=== PATIENT | female | born 1950 | race Caucasian/White ===

== ENCOUNTER → 2023-09-18 11:22 | Outpatient (REF) | payer MEDICARE, OTHER, SELFPAY | LOC: RAD 11:22 | PROVIDERS: ATTENDING PHYSICIAN Emergency Medicine; FAMILY PHYSICIAN Family Medicine | DX: M79.605 Pain in left leg (principal); M79.89 Other specified soft tissue disorders | CPT/HCPCS: 93971 ==

== ENCOUNTER → 2023-11-06 18:53 | Outpatient (REF) | payer MEDICARE, OTHER, SELFPAY | LOC: WDC 18:53 | PROVIDERS: ATTENDING PHYSICIAN Obstetrics & Gynecology; FAMILY PHYSICIAN Family Medicine | DX: Z12.31 Encounter for screening mammogram for malignant neoplasm of breast (principal) | CPT/HCPCS: 77063; 77067 ==

== ENCOUNTER → 2024-01-16 10:59 | Outpatient (REF) | payer MEDICARE, OTHER, SELFPAY | LOC: RAD 10:59 | PROVIDERS: ATTENDING PHYSICIAN Internal Medicine Rheumatology; FAMILY PHYSICIAN Family Medicine | DX: M81.0 Age-related osteoporosis without current pathological fracture (principal); Z13.820 Encounter for screening for osteoporosis; M85.89 Other specified disorders of bone density and structure, multiple sites | CPT/HCPCS: 77080; 77081 ==

== ENCOUNTER 2024-09-23 03:08 | Observation (INO) | payer MEDICARE, OTHER, SELFPAY ==
[2024-09-22 22:20] VITALS: BP 158/137; BP 179/93; BMI 38.6
[2024-09-22 22:22] VITALS: BP 179/93
[2024-09-22 22:49] LABS: Hematocrit 37.5 % (37.0-47.0); Hemoglobin 12.5 g/dL (12.0-16.0); Mean Corp Hgb Conc. 33.3 g/dL (33.0-37.0); Mean Corpuscular Volume 84.7 fL (81.0-99.0); Nucleated Red Blood Cells % 0 %; Platelet Count 325 10^3/uL (130-400); Red Cell Dist. Width 13.9 % (11.5-14.5)
--- NOTE | 2024-09-22 22:58 | ED.GENMED ---
History of Present Illness
General
Chief Complaint: Post Operative Problem(s)
Source: patient
Exam Limitations: none
Time Seen by Provider: 09/22/24 22:56
Nursing documentation reviewed up to this point in time: agreed with
History of Present Illness
History of Present Illness:
Note:
CHIEF COMPLAINT(S)
Increased pain and swelling of the knee following recent knee replacement surgery.
HISTORY OF PRESENT ILLNESS
The patient is a 73-year-old female with pmh of osteoarthirits who underwent a knee replacement surgery approximately one week ago performed by Dr. Burgos at [facility]. Post-operatively, the patient experienced increasing pain and swelling
in the affected knee, which was initially managed with at-home physical therapy exercised over three consecutive days. However, despite early improvements, the patient reported a significant worsening of symptoms on the evening of presentation. She
noted that typically effective oxycodone therapy was not helpful in alleviating the pain.
The patient denies any fever or vomiting post-surgery. Pain management has included oxycodone, with dosing at 1:00 PM and again at 8:20 PM, followed by a second dose at 9:20 PM due to insufficient relief. It was confirmed that she was taking 5
milligrams of oxycodone per dose. Despite this, she continued to experience considerable pain, describing difficulties such as an inability to stand with normal weight-bearing and changes in her walking pattern due to discomfort and swelling. The
patient did not report taking any blood thinners such as Eliquis or Warfarin, nor did she recall the specific antibiotic prescribed post-surgery, though it was initially suggested that it began with the letter 'D.'
PHYSICAL EXAM
Nursing notes and vital signs have been thoroughly reviewed.
General: Patient is well appearing and in no acute distress; non-toxic
Skin: Warm and dry, no rashes or lesions
Head: Normocephalic, atraumatic
Eyes: Sclera non-icteric. EOMs intact.
Cardiac: Tachycardia noted, regular rhythm, no murmurs
Peripheral Vascular: Left sided lower extremity swelling with overlying ecchymosis, 2+ DP and PT pulses b/l
Pulm: Normal respiratory effort, no wheezes, rales, or rhonchi
Musculoskeletal: Tenderness to palpation in the left lower extremity, pain with flexion and extension of the left knee, tenderness to palpation of the posterior knee
Neuro: CN II-XII intact, no focal neurologic deficits.
Psychiatric: Appropriate mood and affect.
PROBLEM LIST
Acute Problems:
- Postoperative knee pain and swelling
CHART REVIEW
-Reviewed external medical summary report from September 03, 2024, patient has continued to experience progressively more standing knee pain despite exhaustive conservative management and decision was made to go under knee replacement surgery,
postoperative prescriptions were provided and she will be started on aspirin following surgery 1 dose daily for DVT prophylaxis
- No operative note or discharge summary for review in [facility]
PLAN
- Obtain an ultrasound of the knee to assess for possible blood clots.
- Initiate pain management, potentially consider small doses of morphine if necessary.
- Consult with orthopedic surgery follow up
DIFFERENTIAL DIAGNOSIS
The Differential Diagnosis includes, in no particular order and is not limited to:
1. Post-surgical pain
2. Hematoma formation
3. Deep vein thrombosis
4. Joint infection
5. Soft tissue inflammation
6. Prosthesis-related osteolysis
7. Complex Regional Pain Syndrome
8. Osteomyelitis
9. Nerve entrapment or injury
10. Surgical site infection
Disposition:
SUMMARY OF ENCOUNTER
The patient is a 74-year-old female with a history of hyperlipidemia, osteoporosis, and right-sided breast cancer. She presented to the emergency department with increased pain and swelling in her right knee, six days following a total knee
replacement. Although she experienced no fevers, chest pain, or shortness of breath, she reported significant difficulty ambulating due to the knee pain. The clinical examination showed knee swelling, ecchymosis, limited range of motion, and the
absence of erythema or discharge from surgical [place]. She was noted to be acutely hypertensive and tachycardic, although afebrile. Venous ultrasound of the left lower extremity was normal. The patients blood work and C-reactive protein were
normal, reducing the suspicion for septic arthritis. Her pain was poorly managed with oxycodone at home. In the emergency room, she received morphine and hydromorphone, easing her pain to 5 out of 10. Pain and swelling are suspected to be secondary
to post-surgical status.
DISPOSITION
Admit for pain control and orthopedic consultation.
ASSESSMENT
Postoperative right knee pain and swelling, likely related to surgical status.
EMERGENCY TREATMENTS ADMINISTERED
Morphine and hydromorphone (Dilaudid).
MANAGEMENT OF THE PATIENTS CARE WAS DISCUSSED WITH
Case discussed with emergency department attending physician.
INDEPENDENT REVIEW OF LABS AND INTERPRETATION OF TESTS
Labs reviewed, mild leukocytosis 12.8, elevated fasting glucose, CRP normal
X-ray unremarkable, ultrasound negative
MEDICAL DECISION MAKING
-Chronic conditions affecting care: Hyperlipidemia, osteoporosis, and prior breast cancer. Differential diagnosis includes post-surgical pain, hematoma formation, deep vein thrombosis, joint infection, soft tissue inflammation, prosthesis-related
osteolysis, complex regional pain syndrome, osteomyelitis, nerve entrapment or injury, surgical site infection.
-Data:
Category 1
The following tests were independently interpreted: venous ultrasound of the left lower extremity, blood work, and C-reactive protein.
Category 3
Discussion of management with an attending physician for admission and orthopedic consultation.
-Risk:
Escalation of care, including admission, was necessary considering the complexity and risk of the patients presenting complaint.
DIAGNOSIS
Postoperative pain and swelling of the right knee following total knee arthroplasty (TKA) - ICD-10: T84.84XA
Past History
Past History
ED Past Medical History: Hypercholesterolemia
ED Past Surgical History: None, Gynecological (Hysterectomy), Orthopedic (Left knee meniscus), Urological (Bladder surgery) and Other (Bowel cyst removal)
Social History
Tobacco: Non-smoker
Alcohol: None
Drug: None
Personal:
Living: with family
Phy Exam
Physical Exam
Physical Exam:
see hpi
Course
Orders/Labs/Results
Orders:
Orders
09/22/24 22:29
Electrocardiogram (*1) Urgent
Reason for Study: Tachycardia
EKG- Treatment ONCE
09/22/24 22:34
C-Reactive Protein Urgent
Comment: ADD ON
CMP [Comprehensive Metabolic Panel] Urgent
Complete Blood Count/With Diff Urgent
Erythrocyte Sed Rate Urgent
Comment: ADD ON
09/22/24 23:16
0.9% Sodium Chloride 500 ml [Nss] 500 ml IV BOLUS
Morphine Sulfate 4 mg IV NOW STA
US Periph Venous LOWER Ext LT Urgent
Comment:
Reason For Exam: left lower extremity swelling and pain
09/22/24 23:18
Acetaminophen [Tylenol] 1,000 mg PO NOW STA
09/22/24 23:26
Add On- LAB Urgent
Tests Added?: ESR, CRP
09/22/24 23:27
CR Knee - Left 4 Or More View* Urgent
Comment:
Reason For Exam: left knee pain, sweling
09/23/24 00:37
HYDROmorphone [Dilaudid] 0.5 mg IV NOW STA
Abnormal Lab Results
09/22/24
22:34
WBC 12.8 H 10^3/uL
(4.8-10.8)
Abs Immat Gran (auto) 0.2 H 10^3/uL
(0-0.05)
Absolute Neuts (auto) 8.2 H 10^3/uL
(1.4-6.5)
Absolute Monos (auto) 1.0 H 10^3/uL
(0.1-0.6)
Immature Gran % 1.5 H %
(0-0.5)
Sodium 134 L mmol/L
(135-145)
Glucose 189 H mg/dl
(70-99)
Total Protein 6.0 L g/dl
(6.3-8.2)
09/22/24 22:34
09/22/24 22:34
Vital Signs
Initial and Last Documented VS:
Initial Vital Signs
Temp Pulse Resp BP Pulse Ox
98.1 F 102 22 179/93 98
09/22/24 22:20 09/22/24 22:20 09/22/24 22:20 09/22/24 22:20 09/22/24 22:20
Last Documented Vital Signs
Temp Pulse Resp BP Pulse Ox
98.1 F 96 17 158/75 93
09/22/24 22:20 09/23/24 02:15 09/23/24 02:15 09/23/24 02:00 09/23/24 02:15
*Pulse Oximetry
SaO2: 98
Oxygen Mode of Delivery: Room air
Patient hypoxic: no
*Critical Care Note
Total Time (30-74mins, 75-104mins- exclusive of procedures): Not Applicable
ED Attending Note
-
Portions of this chart may have been created with voice recognition software.� Occasional wrong word or��sound alike� substitutions may have occurred due to the inherent limitations of voice recognition software.
Discharge Plan
Departure
Patient Disposition: Admit
Date of Disposition: 09/23/24
Time of Disposition: 02:39
Admit to: Med/Surg
Presentation/result/management discussed w/ accepting MD/DO: Hospitalist
Patient with high blood pressure during this ER visit?: Yes
Condition: Fair
Discharge Problem:
Postoperative pain of left knee
Prescriptions:
No Action
denosumab [Prolia] 60 MG/ML syringe
60 mg SC [id number]
cranberry conc-ascorbic acid 1 EACH capsule
2 ea PO DAILY
Patient Comments:
4200 mg
nitrofurantoin macrocrystal 50 MG capsule
50 mg PO PRN PRN (Reason: post coitus)
atorvastatin 10 MG tablet
10 mg PO QPM
dpbkijag-hnifnulmt-EP [Cortisporin] 7.5 GRAM cream
1 applic topical PRN PRN (Reason: eczema)
cholecalciferol (vitamin D3) 2,000 UNITS tablet
2,000 units PO DAILY
psyllium husk [Metamucil Fiber (aspartame)] 1 PACKET powder in packet
1 packet PO QPM
estradiol [Yuvafem] 10 MCG tablet
10 mcg VAG SUWE
Citracal W/D3 Petities 1 TAB Tab
2 tab PO BID
sennosides [senna] 1 TABLET tablet
2 tab PO BID 0RF
acetaminophen 325 MG tablet
650 mg PO QID 0RF
hydrocodone-acetaminophen 1 TABLET tablet
1 tab PO Q4HPRN PRN (Reason: moderate-severe pain) Qty: 35 0RF
Rx Instructions:
1 tab moderate pain or 2 if pain severe
dx tka
ongoing therapy
prochlorperazine maleate 5 MG tablet
5 mg PO Q6HPRN PRN (Reason: n/v) Qty: 15 1RF
tramadol 50 MG tablet
25 mg PO QID Qty: 20 0RF
Rx Instructions:
1/2 tab (25mg)qid x 1 week, then q6h prn breakthru or mild pain
dx TKA
ongoing therapy
magnesium hydroxide 30 ML suspension
30 ml PO DAILYPRN PRN (Reason: constipation) 0RF
aspirin 325 MG tablet,delayed release (DR/EC)
325 mg PO DAILY 0RF
docusate sodium 100 MG capsule
100 mg PO BID 0RF
mupirocin 1 APPLIC ointment
1 applic intranasal BID 0RF
naproxen sodium [Aleve] 220 MG tablet
220 mg PO BID Qty: 0 0RF
Rx Instructions:
TAKE WITH FOOD
DO NOT TAKE WITHIN 2 HOURS OF ASA
omeprazole magnesium [Prilosec OTC] 20 MG tablet,delayed release (DR/EC)
20 mg PO HS Qty: 0 0RF
Rx Instructions:
TAKE NIGHTLY WHILE ON ASA AND NAPROXEN
hydrocodone-acetaminophen 1 EACH tablet
1 ea PO Q4HPRN PRN (Reason: pain > 4/10) Qty: 30 0RF
Referrals:
UNKNOWN - PT DOES,NOT KNOW [Family Provider]
Interventions
Interventions:
*Risk Screen - Suicide Last Done: 09/22/24 22:20
*General Assessment Last Done: 09/22/24 22:20
*Neglect/Abuse Screening Last Done: 09/22/24 22:20
*ED- Fall Risk Assessment Last Done: 09/22/24 22:20
*ED COVID-19 Vaccine History Last Done: 09/22/24 22:20
ED-Skin Assessment Last Done: 09/22/24 22:30
Discharge Date and Time
Print Language: CZECH
[2024-09-22 23:12] LABS: ALT (SGPT) 24 U/L (0-35); AST (SGOT) 18 U/L (14-36); Albumin 3.7 g/dl (3.5-5.0); Alkaline Phosphatase 49 U/L (38-126); Blood Urea Nitrogen 15 mg/dl (7-17); Calcium 8.9 mg/dl (8.4-10.2); Carbon Dioxide 26 mmol/L (22-30); Chloride 102 mmol/L (98-107); Estimated Creatinine Clearance 89 ml/min; Glucose 189 mg/dl (70-99); Potassium 4.7 mmol/L (3.5-5.1); Sodium 134 mmol/L (135-145); Total Protein 6.0 g/dl (6.3-8.2); eGFR > 60.00
[2024-09-22] MEDS: TYLENOL 1000 MG PO (23:44)
[2024-09-22] MEDS: NSS 500 IV (23:46)
[2024-09-22] MEDS: MORPHINE SULFATE 4 MG IV (23:48)
[2024-09-23] VITALS (11 sets, daily range): BP systolic 149–186; BP diastolic 75–93; PULSE 105; O2SAT 96; BMI 37.7
[2024-09-23 00:26] LABS: C-Reactive Protein < 5.00 mg/L (0.0-10.00)
[2024-09-23] MEDS: DILAUDID 0.5 MG IV ×2 (00:43→05:09)
--- NOTE | 2024-09-23 02:32 | DOWNTIME ---
There was a [employer] Downtime on 09/23/2024 from 0100 to 09/23/2024 at 0220. Downtime documentation of patient's care, including medication administrations, has been reconciled in the electronic record per guidelines. Refer to the
patient's paper chart under the miscellaneous tab to see printed paper medication records and downtime forms.
--- NOTE | 2024-09-23 02:48 | HPS.HSE ---
Family Physician
-
Family Physician: NOT KNOW UNKNOWN - PT DOES
Chief Complaint
-
Knee pain
History of Present Illness
This is a 73-year-old female with past medical history significant for GERD, hyperlipidemia, osteoporosis who presents to the emergency department with knee pain. Day # status post left total knee arthroplasty.
Patient reported that 60 days ago she underwent the knee surgery for end-stage left knee osteoarthritis. 6 days following surgery she says that the pain has been worse. She reported that she had same-day surgery and was discharged home to home.
She had a follow-up PT and OT evaluation as well as CBC not the following day. They did physical therapy with her and she was actually feeling better. The continued physical therapy for the next 4 days. On Sunday the patient went to outpatient PT
and had initial evaluation with a stride where she had a pain in the leg and that is when she started noticing the pain. By time she got home she noticed that she has had increased swelling and the legs were very stiff. When she tried to bend the
knee she developed excruciating pain. Due to the swelling and pain family was concerned about a possible blood clot and she was referred to the emergency department. Patient denies any falls. She denies any oral trauma. Patient denies any
weeping or draining from the incision site. She denies having any fevers or chills. She denies any redness.
In the emergency department she was afebrile, blood pressure was 158/75 with a pulse of 96 satting 90% on room air.
ECG was unremarkable
She had a white count of 12.8 at rest of the CBC was unremarkable. Electrolytes were normal. BUN/creatinine were normal. Glucose was 189.
ESR ESR was negative, CRP was negative. Knee x-ray shows appropriate post operative findings. Ultrasound was negative for DVT.
Medical History
Past Medical History
Past Medical History: Reports GERD and Hypercholesterolemia
Past Surgical History: Reports Orthopedic (Status post left total knee arthroplasty)
Social History
Tobacco: Non-smoker
Alcohol: None
Drug: None
Living: With Family
Family History
Family History: Not pertinent
Allergies / Home Medications
Allergies reflects when Allergies were last updated in [employer].
Home Medications with original date entered in [employer]
Allergy/Medication List:
Allergies
Allergy/AdvReac Type Severity Reaction Status Date / Time
alendronate sodium Allergy JOINT PAIN Verified 09/22/24 22:19
risedronate sodium (From Allergy patient Verified 09/22/24 22:19
Actonel) felt like
'throat
closing'
sulfamethoxazole (From Allergy Hives Verified 09/22/24 22:19
Bactrim)
trimethoprim (From Bactrim) Allergy Hives Verified 09/22/24 22:19
dust Allergy tightness Uncoded 09/22/24 22:19
in chest
feather pillows Allergy Hives Uncoded 09/22/24 22:19
mildew Allergy tightness Uncoded 09/22/24 22:19
in chest
mold Allergy tightness Uncoded 09/22/24 22:19
in chest
wool Allergy Rash Uncoded 09/22/24 22:19
Home Medications
Citracal W/D3 Petities 2 tab PO BID 06/10/18
atorvastatin 10 mg tablet 10 mg PO QPM 06/10/18
cholecalciferol (vitamin D3) 50 mcg (2,000 unit) tablet 2,000 units PO DAILY 06/10/18
cranberry concentrate-ascorbic acid 4,200 mg-20 mg capsule 2 ea PO DAILY 06/10/18
denosumab 60 mg/mL subcutaneous syringe (Prolia) 60 mg SC [id number] 06/10/18
estradiol 10 mcg vaginal tablet (Yuvafem) 10 mcg VAG SUWE 06/10/18
cuyslyib-jqtvkngpt-euauvjcxg 3.5 mg/g-10,000 unit/g-0.5 %topical cream (Cortisporin) 1 applic topical PRN PRN eczema 06/10/18
nitrofurantoin macrocrystal 50 mg capsule 50 mg PO PRN PRN post coitus 06/10/18
psyllium husk 3.4 gram oral powder packet (Metamucil Fiber (aspartame)) 1 packet PO QPM 06/10/18
acetaminophen 325 mg tablet 650 mg (2 x 325 mg) PO QID 07/05/18
aspirin 325 mg tablet,delayed release 325 mg PO DAILY 07/05/18
docusate sodium 100 mg capsule 100 mg PO BID 07/05/18
hydrocodone 5 mg-acetaminophen 325 mg tablet 1 tab PO Q4HPRN PRN moderate-severe pain ##35 07/05/18
magnesium hydroxide 400 mg/5 mL oral suspension 30 ml PO DAILYPRN PRN constipation 07/05/18
mupirocin 2 % topical ointment 1 applic intranasal BID 07/05/18
naproxen sodium 220 mg tablet (Aleve) 220 mg PO BID ##0 07/05/18
omeprazole magnesium 20 mg tablet,delayed release (Prilosec OTC) 20 mg PO HS ##0 07/05/18
prochlorperazine maleate 5 mg tablet 5 mg PO Q6HPRN PRN n/v ##15 07/05/18
sennosides 8.6 mg tablet (senna) 2 tab PO BID 07/05/18
tramadol 50 mg tablet 25 mg (1/2 x 50 mg) PO QID ##20 07/05/18
hydrocodone 5 mg-acetaminophen 325 mg tablet 1 ea PO Q4HPRN PRN pain > 4/10 #30 tabs 02/04/19
Review of Systems
-
Constitutional: Reports No Symptoms
EENT: Reports No Symptoms
Respiratory: Reports No Symptoms
Cardiac: Reports No Symptoms
Abdomen/GI: Reports No Symptoms
: Reports No Symptoms
Musculoskeletal: Reports Joint Pain and Joint Swelling
Skin: Reports No Symptoms
Neurological: Reports No Symptoms
Endocrine: Reports No Symptoms
Hematologic/Lymphatic: Reports No Symptoms
Psych: Reports No Symptoms
Physical Exam
Vital Signs
Vital Signs
Temp Pulse Resp BP Pulse Ox
98.1 F 96 17 158/75 93
09/22/24 22:20 09/23/24 02:15 09/23/24 02:15 09/23/24 02:00 09/23/24 02:15
Physical Exam
General: Well Developed, Well Nourished and No Apparent Distress
HEENT: NormoCephalic, Moist mucous membranes and Atraumatic
Respiratory: Clear
Cardiac: S1/S2 and Regular Rhythm; No Murmur or Rub
GI: Soft, Non Tender, Non Distended and Normal Bowel Sounds; No Organomegaly
Rectal: Deferred by Provider
Musculoskeletal: No Clubbing, No Cyanosis, Edema, Left Lower Extremity and Other (Left knee ecchymoses and swelling, reduced range of motion, no erythema, no drainage, left knee knee does feel slightly warm compared to the contralateral knee.)
Skin: No Rash
Neuro: AO x 3 and Nonfocal/grossly intact
Psych: Calm
Laboratory Results
-
09/22/24 22:34
09/22/24 22:34
Laboratory Results
Total Bilirubin 0.5 mg/dl (0.2-1.3) 09/22/24 22:34
AST 18 U/L (14-36) 09/22/24 22:34
ALT 24 U/L (0-35) 09/22/24 22:34
Alkaline Phosphatase 49 U/L (38-126) 09/22/24 22:34
Data Reviewed
-
Ultrasound: Image Personally Visualized and interpreted
Medical Tests (Nuc Med, Echo, EKG etc): Image Personally Visualized and interpreted
Lab Data: Labs Reviewed by me
Old Records: Reviewed
Impression/Plan
-
IMPRESSION:
73-year-old female with knee pain postop day #3 status post left total knee arthroplasty. The knee itself has some edema but no erythema warmth or drainage. There is some reduced range of motion. There is significant edema in the left leg which
she also appears postsurgical. Ultrasound was negative for DVT. This exam is consistent with a postsurgical knee. No obvious signs of cellulitis. Inflammatory markers such as ESR and CRP were normal. There is no fever. White count was 12.8.
Low concern for septic arthritis.
PLAN:
Left knee pain with ambulatory dysfunction
- Admit to MedSurg observation
- Orthopedic consult
- Continue with pain control with morphine and toradol
- continue post op dvt ppx with asa 325 daily for now
- in the absence of signs of infection, held of abx pending ortho examination.
- PT eval
- case management
Code Status - Full code
--- NOTE | 2024-09-23 08:05 | CON.ORTHO ---
Addendum entered and electronically signed by Jorden Burgos MD 09/23/24 18:00:
Patient seen and examined. Sitting in a chair in hospital room with family at her bedside. Admitted for intractable pain last night following TKR by myself a few days ago. No signs of infection. US negative. Pain manageable. Recommend
discharge tomorrow morning after PT. Resume outpatient PT on . Continue home postop meds to include ASA for DVT prophylaxis. Follow up in office at 2 weeks postop for staple removal.
Original Note:
Consultation
-
Date/Time Consultation Requested: 09/23/24
Date/Time Consultation Performed: 09/23/24 @7:45am
Requesting Provider: ER Provider
Performing Provider: Lizzie Stephens PA-C, Fletcher Burgos MD
Reason for Consultation: left knee pain
Consultation - Orthopedics
History
HPI: 73yo female who presented to [place] [facility] for left knee pain. She underwent left TKA on 09/17/[address] Burgos. She reports that she has been doing well however last night she had increased swelling and pain to the left knee. She was taking
extra strength tylenol and oxycodone without relief. She was having some pain in her calf as well and therefore presented to the ER for evaluation. She has been working with PT 2-3 times per week and performing home exercises three times per day.
She also reports that over the past few days she has started cutting back on her oxycodone. She had an ultrasound performed which was negative for DVT and her labwork was unremarkable. She denies fever or chills. She has been compliant with her
aspirin for DVT prophylaxis
PAST MEDICAL HISTORY: GERD and Hypercholesterolemia
PAST SURGICAL HISTORY: s/p left TKA, right TKA
SOCIAL HISTORY: denies tobacco, alcohol. lives at home with family
FAMILY HISTORY: non contributory
REVIEW OF SYSTEMS: 12 point review of systems obtained and negative except those mentioned in the HPI
Allergies / Home Medications
Allergy/AdvReac Type Severity Reaction Status Date / Time
alendronate sodium Allergy JOINT PAIN Verified 09/22/24 22:19
risedronate sodium (From Allergy patient Verified 09/22/24 22:19
Actonel) felt like
'throat
closing'
sulfamethoxazole (From Allergy Hives Verified 09/22/24 22:19
Bactrim)
trimethoprim (From Bactrim) Allergy Hives Verified 09/22/24 22:19
dust Allergy tightness Uncoded 09/22/24 22:19
in chest
feather pillows Allergy Hives Uncoded 09/22/24 22:19
mildew Allergy tightness Uncoded 09/22/24 22:19
in chest
mold Allergy tightness Uncoded 09/22/24 22:19
in chest
wool Allergy Rash Uncoded 09/22/24 22:19
�Medication �Instructions �Recorded
Citracal W/D3 Petities 2 tab PO BID 06/10/18
atorvastatin 10 mg tablet 10 mg PO QPM 06/10/18
cholecalciferol (vitamin D3) 50 2,000 units PO DAILY 06/10/18
mcg (2,000 unit) tablet
cranberry concentrate-ascorbic 2 ea PO DAILY 06/10/18
acid 4,200 mg-20 mg capsule
denosumab 60 mg/mL subcutaneous 60 mg SC [id number] 06/10/18
syringe (Prolia)
estradiol 10 mcg vaginal tablet 10 mcg VAG SUWE 06/10/18
(Yuvafem)
psyllium husk 3.4 gram oral powder 1 packet PO QPM 06/10/18
packet (Metamucil Fiber
(aspartame))
acetaminophen 325 mg tablet 650 mg (2 x 325 mg) PO QID 07/05/18
docusate sodium 100 mg capsule 100 mg PO BID 07/05/18
magnesium hydroxide 400 mg/5 mL 30 ml PO DAILYPRN PRN constipation 07/05/18
oral suspension
omeprazole magnesium 20 mg 20 mg PO HS ##0 07/05/18
tablet,delayed release (Prilosec
OTC)
Vital Signs / Lab Results
Temp Pulse Resp BP Pulse Ox
98.4 F 106 18 172/88 97
09/23/24 07:00 09/23/24 07:00 09/23/24 07:00 09/23/24 07:00 09/23/24 07:00
09/22/24 22:34
09/22/24 22:34
Labs:
ESR 10
CRP <5
RADIOGRAPHIC FINDINGS:
Xrays left knee show well positioned left TKA without evidence of hardware complication. no obvious fracture. overlying [place]
Ultrasound negative for DVT
PHYSICAL EXAM:
General: no acute distress
HEENT: NCAT, sclera anicteric, normal hearing
Heart: No JVD
Lungs: Normal work of breathing on room air
MSK: Focused exam of left knee reveals Aquacel in place with minimal strikethrough to center. expected edema and ecchymosis. mild general tenderness to palpation of the knee. ROM 3-80. calf soft and nontender. NVI distally
Assessment / Plan
ASSESSMENT: 73yo female with left knee pain s/p left TKA one week ago
PLAN: Ms. Ying presents to the ER for uncontrolled pain one week postop from left TKA under the direction of Dr. Burgos. Her lab work is unremarkable and her xray looks good. I am not concerned for infection at this time. Her pain is improved
currently. Her left knee does have expected postop swelling and bruising. Thankfully, her ultrasound was negative for DVT. Reviewed with her to continue with aggressive icing and elevation. She may also continue with pain medications as needed. She
states that she will need a refill of her oxycodone which I will send to her pharmacy. She may continue working with PT. She is to take aspirin 325mg daily for DVT prophylaxis until one month postop. She does have an outpatient appointment scheduled
for next week. Orthopedics will sign off at this time. Please reach out with any questions or concerns.
[2024-09-23] MEDS: COLACE 100 MG PO ×2 (08:41→20:21)
[2024-09-23] MEDS: ASPIRIN ENTERIC COATED 325 MG PO (08:41)
[2024-09-23] MEDS: APRESOLINE 10 MG IV ×2 (09:10→16:02)
--- NOTE | 2024-09-23 11:01 | CM ---
Addendum entered by Raya Bradford 09/23/24 12:58:
Pt is eligible for [employer] waiver
Original Note:
CM met with pt bedside
Pt resides with her spouse in a 2SH with 3STE thru back and 6STE thru front
Pt had L. TKA on 09/17
Has since closed to [facility] last week and current with outpt therapy at [facility] in [place]
Pt has been sleeping in recliner on 1st floor since surgery but typically sleeps on 2nd floor, full flight
Pt is typically indep at baseline, has been utilizing a WW since surgery
Has a WW, SPC, RTSx2 and shower chair at home
PCP- Saritha Leblanc
Rx- [facility], [place]
Pt is OBS- [facility] verbally reviewed, copy provided
PT eval pending
Discharge Disposition- home with [facility] outpt vs VN vs watch for higher needs
[2024-09-23] MEDS: ROXICODONE 5 MG PO (16:11)
--- NOTE | 2024-09-23 17:01 | PTCARENOTE ---
Pt arrived to [facility] from the ED in a wheelchair. Pt walked from wheelchair to chair with a RW. Left knee with +2 edema and ecchymosis. Left knee dressing with small old drainage. Admission questions answered. Bed locked and in lowest position. Care
ongoing.
[2024-09-23] MEDS: LIPITOR 10 MG PO (17:41)
[2024-09-23] MEDS: TOPROL XL 25 MG PO (18:14)
[2024-09-23] MEDS: PROTONIX 40 MG PO (20:21)
[2024-09-24] MEDS: ROXICODONE 5 MG PO (02:54)
[2024-09-24 07:37] VITALS: BP 143/81
[2024-09-24] MEDS: ASPIRIN ENTERIC COATED 325 MG PO (07:52)
[2024-09-24] MEDS: TOPROL XL 25 MG PO (07:52)
[2024-09-24] MEDS: COLACE 100 MG PO (07:52)
[2024-09-24 09:02] LABS: Hematocrit 37.1 % (37.0-47.0); Hemoglobin 12.0 g/dL (12.0-16.0); Mean Corp Hgb Conc. 32.3 g/dL (33.0-37.0); Mean Corpuscular Volume 86.3 fL (81.0-99.0); Platelet Count 321 10^3/uL (130-400); Red Cell Dist. Width 14.1 % (11.5-14.5)
--- NOTE | 2024-09-24 09:09 | W.PN.HOSP.TC ---
Addendum entered and electronically signed by Jose Foote MD 09/24/24 11:20:
CT chest PE showing RUL PE, mod clot burden, no heart strain based on CT standard
will discuss with ortho for clearance to be started on blood thinners.
Original Note:
Today's Communication/Plan
-
Reevaluation by physical therapy
Check renal function
CT chest PE
Discharge later today if CT negative
Assessment / Plan
Assessment / Plan
1. Left knee pain
Ambulatory dysfunction
Status post left TKA on 09/17
- Patient evaluated by orthopedic surgery and no acute pathology found
- Lower extremity venous Doppler negative for blood clot
- Patient to be reevaluated by physical therapy
- Pain control and therapy recommended moving forward
2. Sinus tachycardia
Elevated blood pressure
-No formal diagnosis of hypertension
-Patient started on Toprol-XL for simultaneous control of blood pressure and heart rate
-Although pain can explain patient is relatively controlled with current pain medication regimen, we will need to rule out VTE, ordering CT chest PE. Check renal function for appropriateness for contrast study.
3. Gastroesophageal reflux disease
-Maintain on omeprazole
4. Hyperlipidemia
-Continue on atorvastatin
DVT PPX - SCD
Full code
Anticipated Discharge: Today
Subjective/Interval History
-
Date of Service: September 24, 2024
Resting comfortably in bed
No chest pain/palpitation/dizziness overnight
Objective Data
-
Labs:
Laboratory Results
09/24/24
08:42
WBC 13.5 H
Hgb 12.0
Hct 37.1
Plt Count 321
Sodium Pending
Potassium Pending
Chloride Pending
Carbon Dioxide Pending
BUN Pending
Creatinine Pending
Glucose Pending
Calcium Pending
Vital Signs:
Vital Signs
Temp Pulse Resp BP Pulse Ox
98.7 F 109 16 143/81 96
09/24/24 07:37 09/24/24 07:37 09/24/24 07:37 09/24/24 07:37 09/24/24 07:37
I&O
09/23/24 09/24/24 09/25/24
06:59 06:59 06:59
Intake Total 1320 / 1320
Output Total 275 / 275
Balance 1045 / 1045
Review of Systems
-
Respiratory: Reports No Symptoms
Cardiac: Denies Chest Pain or Palpitations
Abdomen/GI: Reports No Symptoms
Physical Exam
-
General: Comfortable
HEENT: Negative Oxygen
Cardiac: Regular Rhythm, S1/S2 and Tachycardic; Negative Murmur or Rub
GI: Soft and Nontender
Musculoskeletal: Edema, Left Lower Extrem (Midline dressing, ecchymosis)
Neuro: Awake, Alert, Oriented, No Motor Deficits and Nonfocal/Grossly Intact
Psych: Calm
[2024-09-24 09:34] LABS: Blood Urea Nitrogen 11 mg/dl (7-17); Calcium 9.5 mg/dl (8.4-10.2); Carbon Dioxide 27 mmol/L (22-30); Chloride 101 mmol/L (98-107); Estimated Creatinine Clearance 88 ml/min; Glucose 148 mg/dl (70-99); Potassium 4.4 mmol/L (3.5-5.1); Sodium 135 mmol/L (135-145); eGFR > 60.00
[2024-09-24] MEDS: ELIQUIS 10 MG PO (12:15)
--- NOTE | 2024-09-24 13:16 | CM ---
Reviewed the chart notes and spoke with the patient at the bedside. Coupon for 30d free Eliquis provided to the patient. Patient's spouse at bedside for transportation to home today. Patient will be doing outpatient PT at [facility]. CM
continues to be available to patient/family and is monitoring medical plan for needs at discharge.
Plan: Discharge to home with outpatient therapy with [facility].
[2024-09-24 13:30] VITALS: BP 152/88
--- NOTE | 2024-09-25 15:49 | W.DCSUMMARY ---
Discharge Summary
Discharge Data
Date of Admission: 09/23/24
Date of Discharge: 09/24/24
-
Pending Results: No
Hospital Course
Discharging Physician : Dr Jose Foote
Disposition : To home
Primary care physician : Unknown
Principal Discharge diagnosis :
Left knee pain post recent left total knee replacement
Right upper lobe pulmonary embolism
Ambulatory dysfunction
Chronic Discharge diagnosis :
Obesity
Osteoarthritis
Hyperlipidemia
Essential hypertension
Gastroesophageal reflux disease
Hospital Course :
Patient is a 73-year-old female with no mentioned past medical history came to ER with having new onset of left knee pain and ambulatory dysfunction. Patient had underwent an left knee replacement on September 17. Postdischarge patient noted to having
some excessive pain and swelling and came to ER for further evaluation. A lower extremity venous Doppler done in ER was negative for acute issues. Orthopedic surgery evaluated and no issues were found with replacement knee. Orthopedic surgery
cleared patient to continue on outpatient therapy with pain control. Patient was also noted to be having sinus tachycardia, a follow-up CT chest PE was done which showed right upper lobe PE. Patient did not have any complicating factor of
hypoxia/heart strain. Patient was started on Eliquis therapy and was discharged home to follow-up with primary hematology/oncologist
Important imaging findings :
None
Procedure findings :
None
Discharge Plan
-
Patient Disposition: Home (Routine Discharge)
Discharge Diagnosis/Procedures: RUL PE, left knee replacement 7, Pain
Condition: Fair
Diet: Regular
Activity: As tolerated
Driving Restrictions: No driving until cleared by physical therapy
Bathing Restrictions: OK to Shower
Other Services: PT
Activity Restrictions/Additional Instructions:
Please seek medical attention for major bleeding -blood in stool/vomiting blood/hematoma formation/nose bleeding.
Referrals:
Natali Wade MD [Active, Oncology] - in one to two months
UNKNOWN - PT DOES,NOT KNOW [Family Provider]
Prescriptions:
New
metoprolol succinate 25 mg Tablet Extended Release 24 Hr
25 mg PO BID Qty: 60 2RF
Eliquis 5 mg tablet
5 mg PO BID Qty: 74 0RF
Rx Instructions:
Take 2 tablets twice daily for 7 days then take 1 tablet twice daily for maintenance
First month supply
Eliquis 5 mg tablet
5 mg PO BID Qty: 60 1RF
Rx Instructions:
Second months supply
Continued
Prolia 60 MG/ML syringe
60 mg SC [id number]
atorvastatin 10 MG tablet
10 mg PO QPM
Metamucil Fiber (aspartame) 1 PACKET powder in packet
1 packet PO QPM
Caltrate-D3 Plus Minerals 600 mg-20 mcg- 40 mg-0.25 mg Tablet,Chewable
2 tab PO BID Qty: 0
acetaminophen 325 MG tablet
650 mg PO QID 0RF
omeprazole magnesium [Prilosec OTC] 20 MG tablet,delayed release (DR/EC)
20 mg PO HS Qty: 0 0RF
Rx Instructions:
TAKE NIGHTLY WHILE ON ASA AND NAPROXEN
therapeutic multivitamin Tablet
1 tab PO DAILY
oxycodone 5 mg Tablet
5 mg PO Q4HPRN PRN (Reason: severe pain)
Discharge Orders:
Discharge Patient (As Directed); Ordered 09/24/24
Ordered By: Jose Foote
Discharge Date and Time
Discharge Date/Time: 09/24/24 14:10
Print Language: SLOVENIAN
== END 2024-09-24 14:10 | disposition home or self-care (01) ==
LOC: 2 SOUTH 03:08
PROVIDERS: ADMITTING PHYSICIAN Internal Medicine; ATTENDING PHYSICIAN Hospitalist; EMERGENCY PHYSICIAN Student in an Organized Health Care Education/Training Program; OTHER PHYSICIAN Orthopaedic Surgery
DX: G89.18 Other acute postprocedural pain (principal); M25.562 Pain in left knee; I26.99 Other pulmonary embolism without acute cor pulmonale; R00.0 Tachycardia, unspecified; K21.9 Gastro-esophageal reflux disease without esophagitis; E78.00 Pure hypercholesterolemia, unspecified; Z96.652 Presence of left artificial knee joint; E66.9 Obesity, unspecified; Z68.37 Body mass index [BMI] 37.0-37.9, adult; I10 Essential (primary) hypertension; D72.829 Elevated white blood cell count, unspecified; Z79.01 Long term (current) use of anticoagulants
CPT/HCPCS: 71275; 73564; 80048; 80053; 85025; 85027; 85652; 86140; 93005; 93971; 96361; 96374; 96375; 99285; G0378; Q9967

== ENCOUNTER → 2024-11-25 15:06 | Outpatient (REF) | payer MEDICARE, OTHER, SELFPAY | LOC: WDC 15:06 | PROVIDERS: ATTENDING PHYSICIAN Obstetrics & Gynecology; FAMILY PHYSICIAN Family Medicine | DX: Z12.31 Encounter for screening mammogram for malignant neoplasm of breast (principal) | CPT/HCPCS: 77063; 77067 ==